=== PATIENT | male | born 1970 | race Caucasian/White ===

== ENCOUNTER 2016-04-26 12:37 | Emergency (ER) | payer OTHER ==
[2016-04-26] MEDS ORDERED: ASPIRIN 81 MG TABLET, CHEWABLE PO ONE (13:34)
[2016-04-26 13:45] LABS: ABSOLUTE EOSINOPHILS # (AUTO) 0.1 10^3/uL (0.0-0.6); ABSOLUTE LYMPHOCYTES (AUTO) 0.9 10^3/uL (0.5-4.7); ABSOLUTE MONOCYTES (AUTO) 0.4 10^3/uL (0.1-1.4); ABSOLUTE NEUT (AUTO) 3.9 10^3/uL (1.7-8.2); BASOPHILS % (AUTO) 0.9 % (0-2); EOSINOPHILS % (AUTO) 2.3 % (0-6); HEMATOCRIT 40.3 % (37.9-51.0); HEMOGLOBIN 14.1 g/dL (13.5-17.0); LYMPHOCYTES % (AUTO) 16.2 % (13-45); MEAN CORPUSCULAR HEMOGLOBIN 29.5 pg (27.0-33.4); MEAN CORPUSCULAR HGB CONC 35.1 g/dL (32.0-36.0); MEAN CORPUSCULAR VOLUME 84 fl (80-97); MONOCYTES % (AUTO) 7.4 % (3-13); RED BLOOD COUNT 4.79 10^6/uL (4.35-5.55); RED CELL DISTRIBUTION WIDTH 12.8 % (11.5-14.0); SEGMENTED NEUTROPHILS % (AUTO) 73.2 % (42-78); WHITE BLOOD COUNT 5.4 10^3/uL (4.0-10.5)
[2016-04-26 14:00] LABS: ALANINE AMINOTRANSFERASE 32 U/L (21-72); ALBUMIN 4.3 g/dL (3.5-5.0); ALKALINE PHOSPHATASE 69 U/L (38-126); ANION GAP 13 (5-19); ASPARTATE AMINO TRANSFERASE 30 U/L (17-59); BILIRUBIN,TOTAL 0.5 mg/dL (0.2-1.3); BLOOD UREA NITROGEN 11 mg/dL (7-20); CALCIUM 9.5 mg/dL (8.4-10.2); CARBON DIOXIDE 27 mmol/L (22-30); CHLORIDE 104 mmol/L (98-107); CREATINE KINASE 87 U/L (55-170); CREATININE RESULT 0.73 mg/dL (0.52-1.25); GLUCOSE 110 mg/dL (75-110); POTASSIUM 4.3 mmol/L (3.6-5.0); SODIUM 143.5 mmol/L (137-145); TOTAL PROTEIN 7.5 g/dL (6.3-8.2)
[2016-04-26 14:11] LABS: CREATINE KINASE MB 0.38 ng/mL (<4.55)
[2016-04-26 14:12] LABS: TROPONIN I < 0.012 ng/mL
[2016-04-26 15:01] LABS: PROTHROMBIN TIME 12.6 SEC (11.4-15.4)
--- NOTE | 2016-04-26 16:05 | ER Document Report ---
ED General - General Chief Complaint: Chest Pain Stated Complaint: CHEST PAIN - HPI Patient complains to provider of: chest pain Notes: Patient coming in for evaluation of chest pain. Patient states no past medical history does not smoke drinks socially does not use any drugs states when he was at work when chest pain started. Patient describes is more chest pressure epigastric with intermittent episodes ongoing days prior to arrival. Patient states this is the more intense than normal that was relieved with EMS initiation of nitrate. Patient denies fevers chills nausea vomiting trauma. Patient does not take any medication or is allergic to any medications. Past Medical History - Social History Smoking Status: Unknown if Ever Smoked Family History: Reviewed & Not Pertinent - Immunizations Hx Diphtheria, Pertussis, Tetanus Vaccination: Yes Review of Systems - Review of Systems Constitutional: No symptoms reported EENT: No symptoms reported Cardiovascular: Chest pain Respiratory: No symptoms reported Gastrointestinal: No symptoms reported Genitourinary: No symptoms reported Male Genitourinary: No symptoms reported Musculoskeletal: No symptoms reported Skin: No symptoms reported Hematologic/Lymphatic: No symptoms reported Neurological/Psychological: No symptoms reported Physical Exam - Vital signs Vitals: Pulse Ox 98 04/26/16 12:40 Interpretation: Normal - General General appearance: Appears well, Alert - HEENT Head: Normocephalic, Atraumatic Eyes: Normal Pupils: PERRL - Respiratory Respiratory status: No respiratory distress Chest status: Nontender Breath sounds: Normal Chest palpation: Normal - Cardiovascular Rhythm: Regular Heart sounds: Normal auscultation Murmur: No - Abdominal Inspection: Normal Distension: No distension Bowel sounds: Normal Tenderness: Nontender Organomegaly: No organomegaly - Back Back: Normal, Nontender - Extremities General upper extremity: Normal inspection, Nontender, Normal color, Normal ROM , Normal temperature General lower extremity: Normal inspection, Nontender, Normal color, Normal ROM , Normal temperature, Normal weight bearing. No: Baylee's sign - Neurological Neuro grossly intact: Yes Cognition: Normal Orientation: AAOx4 Bob Coma Scale Eye Opening: Spontaneous Bob Coma Scale Verbal: Oriented [place] Coma Scale Motor: Obeys Commands Bob Coma Scale Total: 15 Speech: Normal Motor strength normal: LUE, RUE, LLE, RLE Sensory: Normal - Psychological Associated symptoms: Normal affect, Normal mood - Skin Skin Temperature: Warm Skin Moisture: Dry Skin Color: Normal Course - Re-evaluation Re-evalutation: 04/26/16 16:01 Patient with resolution of his chest pain prior to arrival. Patient's EKG does not show any critical etiology at this time. Patient's initial troponin is negative. I did discuss patient's case with on-call cardiology Dr. SIMON. Agrees with assessment and plan to repeat troponin if negative patient can follow-up in his office. Patient is to take a aspirin daily until he follows up with Dr. Maria. Family this time agrees with plan. Patient's second troponin will be signed out to the oncoming physician Larry - Vital Signs Vital signs: Temp Pulse Resp BP Pulse Ox 14 112/77 99 04/26/16 14:01 04/26/16 14:01 04/26/16 14:01 - Laboratory Result Diagrams: 04/26/16 13:00 04/26/16 13:00 Discharge - Discharge Clinical Impression: Chest pain of uncertain etiology Condition: Good Disposition: HOME, SELF-CARE Instructions: Chest Pain of Unclear Cause ([facility]), Chest Wall Pain ([facility]), Aspirin (Cardiac) ([facility]) Additional Instructions: Take aspirin daily. Please follow-up with Dr. SIMON. You may call Dr. Simon concerns [phone] Return to the ER if any symptoms worsen Prescriptions: Aspirin 325 mg PO DAILY #30 tablet Forms: Return to Work Referrals: MAGGIE RENTERIA MD [ACTIVE STAFF] - Follow up as needed
[2016-04-26 18:46] LABS: APPEARANCE,URINE CLEAR; BILIRUBIN,URINE NEGATIVE (NEGATIVE); GLUCOSE, URINE NEGATIVE (NEGATIVE); KETONES,URINE NEGATIVE (NEGATIVE); LEUKOCYTE ESTERASE,URINE NEGATIVE (NEGATIVE); NITRITE,URINE NEGATIVE (NEGATIVE); PROTEIN,URINE NEGATIVE (NEGATIVE); URINE SPECIFIC GRAVITY 1.008; UROBILINOGEN,URINE NEGATIVE mg/dL (<2.0)
[2016-04-26 19:02] LABS: URINE BARBITURATES SCREEN NEGATIVE; URINE METHADONE SCREEN NEGATIVE; URINE OPIATES LOW NEGATIVE; URINE PHENCYCLIDINE SCREEN NEGATIVE
[2016-04-26 19:12] VITALS: BP 116/70
--- NOTE | 2016-04-26 19:33 | EKG REPORT ---
SEVERITY:- NORMAL ECG - SINUS RHYTHM ST ELEV, PROBABLE NORMAL EARLY REPOL PATTERN : Confirmed by: Chrissie Beckman 26-Apr-2016 19:33:16
--- NOTE | 2016-04-26 19:33 | EKG REPORT ---
SEVERITY:- NORMAL ECG - SINUS RHYTHM ST ELEV, PROBABLE NORMAL EARLY REPOL PATTERN : Confirmed by: Chrissie Beckman 26-Apr-2016 19:33:12
== END 2016-04-26 19:05 | disposition home or self-care (01) ==
LOC: ER 12:37
DX: R07.89 Other chest pain (principal)
CPT/HCPCS: 36415; 71010; 80053; 80307; 81001; 82550; 82553; 84484; 85025; 85610; 93005; 93010; 99285

== ENCOUNTER → 2016-05-13 | Outpatient (CLI) | payer OTHER ==
--- NOTE | 2016-05-13 18:23 | XCELERA REPORT ---
[address] [id number] Transthoracic Echocardiogram Report Name: LETY KIDD Age: 45 yrs Gender: Male : 1970 Patient Status: Outpatient Patient Location: Study Date: 05/13/2016 09:00 AM Height: 75 in Weight: 230 lb BSA: 2.3 m2 Procedure: A two-dimensional transthoracic echocardiogram with color flow and Doppler was performed. The study was technically difficult with many images being suboptimal in quality. Reason For Study: CP History: Chest pain. Ordering Physician: ODALIS RENTERIA Performed By: Mila Madison Interpretation Summary The left ventricle is normal in size. There is normal left ventricular wall thickness. Left ventricular systolic function is normal. LV EF is > tghan 60%.% The left ventricular wall motion is normal. There is no thrombus. The right ventricle is grossly normal size. The right ventricle is not well visualized secondary to technical limitations The left atrial size is normal. There is no evidence of mitral valve prolapse. There is no mitral valve stenosis. There is a trace amount of mitral regurgitation The aortic valve is trileaflet. There is no aortic valve stenosis There is no LVOT obstruction. No aortic regurgitation is present. There is no tricuspid stenosis. There is a trace amount of tricuspid regurgitation Right ventricular systolic pressure is normal. RVSP is 25 to 30 mm of Hg, wiyh RA mean of 5 to 10. There is no pericardial effusion. MMode/2D Measurements \T\ Calculations RVDd: 3.3 cm LVIDd: 5.2 cm FS: 39.0 % Ao root diam: 2.7 cm IVSd: 0.93 cm LVIDs: 3.2 cm EDV(Teich): 131.9 ml LVPWd: 0.96 cm ESV(Teich): 40.8 ml Ao root area: 5.7 cm2 EF(Teich): 69.0 % LA dimension: 3.3 cm Doppler Measurements \T\ Calculations MV E max jillian: MV P1/2t max jillian: Ao V2 max: LV V1 max P.4 cm/sec 86.4 cm/sec 100.6 cm/sec 3.3 mmHg MV A max jillian: MV P1/2t: 67.2 msec Ao max PG: LV V1 max: 41.5 cm/sec 4.0 mmHg 90.3 cm/sec MV E/A: 2.1 MVA(P1/2t): 3.3 cm2 MV dec slope: 376.7 cm/sec2 MV dec time: 0.23 sec PA V2 max: TR max jillian: 90.3 cm/sec 220.4 cm/sec PA max PG: TR max P.4 mmHg 3.3 mmHg Left Ventricle The left ventricle is normal in size. There is normal left ventricular wall thickness. Left ventricular systolic function is normal. LV EF is > tghan 60%.%. Doppler measurements suggest normal left ventricular diastolic function. The left ventricular wall motion is normal. There is no thrombus. Right Ventricle The right ventricle is grossly normal size. The right ventricle is not well visualized secondary to technical limitations. Atria The right atrium is normal. The left atrial size is normal. Mitral Valve There is no evidence of mitral valve prolapse. There is no vegetation seen on the mitral valve. There is no mitral valve stenosis. There is a trace amount of mitral regurgitation. Aortic Valve The aortic valve is trileaflet. The aortic valve opens well. There is no aortic valvular vegetation. There is no aortic valve stenosis. There is no LVOT obstruction. No aortic regurgitation is present. Tricuspid Valve There is no tricuspid stenosis. There is a trace amount of tricuspid regurgitation. Right ventricular systolic pressure is normal. RVSP is 25 to 30 mm of Hg, wiyh RA mean of 5 to 10. Pulmonic Valve There is no pulmonic valvular stenosis. There is no pulmonic valvular regurgitation. Great Vessels The aortic root is normal size. Effusions There is no pericardial effusion. : ODALIS RENTERIA > Odalis Renteria
== END ==
LOC: SP 08:31
PROVIDERS: ATTEND Specialist
DX: R07.9 Chest pain, unspecified (principal)
CPT/HCPCS: 93306